=== PATIENT | female | born 1935 | race Caucasian/White ===

== ENCOUNTER 2017-10-23 13:15 | Emergency (ER) | payer MEDICARE, OTHER, SELFPAY ==
[2017-10-23 13:18] VITALS: BP 158/67; PULSE 63; RESP 16; TEMP 36.2; O2SAT 95; BMI 25.1
[2017-10-23 14:24] VITALS: BP 170/73; PULSE 53
--- NOTE | 2017-10-23 15:52 | PC.NURSE ---
Attempts x2 unsuccessful for IV start
[2017-10-23 16:00] VITALS: BP 149/63; PULSE 62; RESP 15; O2SAT 99
--- NOTE | 2017-10-23 16:07 | PC.NURSE ---
First 2 attempts by primary RN
[2017-10-23 16:10] LABS: Add Manual Diff / Slide Review NO; Basophils Percent Auto 0.2 % (0-2); Eosinophils Percent Auto 1.2 % (2-4); Hematocrit 39.7 % (36-46); Hemoglobin 13.6 g/dL (12.0-16.0); Lymphocytes Percent Auto 16.3 % (25-40); Mean Corpuscular HGB Conc 34.3 % (30-36); Mean Corpuscular Hemoglobin 32.1 PG (26-34); Mean Corpuscular Volume 93.7 fL (80-100); Monocytes Percent Auto 6.7 % (3-14); Neutrophils Absolute Auto 5500 /uL (3000-5900); Neutrophils Percent Auto 75.6 % (50-75); Platelet Count 280 X10^3/uL (150-400); Red Blood Cell Count 4.24 X10^6/uL (4.0-5.2); Red Cell Distribution Width 13.6 % (11.6-14.8); White Blood Cell Count 7.3 X10^3/uL (4.5-11.0)
[2017-10-23] MEDS: SODIUM CHLORIDE 0.9% 1,000 ML 1000 ML IV (16:10)
[2017-10-23 16:21] LABS: BUN Creatinine Ratio 22.5 (6-22); Blood Urea Nitrogen 18 mg/dL (7-17); Carbon Dioxide 27 mmol/L (22-32); Chloride 106 mmol/L (98-107); Estimated Glomerular Filt Rate > 60.0 mL/min (>60); Glucose 95 mg/dL (80-110); HEMOLYSIS 21 (0-50); Potassium 4.3 mmol/L (3.4-5.1); Sodium 142 mmol/L (137-145)
[2017-10-23 16:36] LABS: Troponin I < 0.012 ng/mL (0.01-0.034)
[2017-10-23 17:06] VITALS: BP 140/64; PULSE 58; RESP 14; O2SAT 99
--- NOTE | 2017-10-23 17:36 | ED_ITS ---
HPI - Dizziness General Chief Complaint: Dizziness Stated Complaint: Pt states Dizziness, elevated BP 160/90 Time Seen by Provider: 10/23/17 15:16 Source: patient Mode of arrival: ambulatory Limitations: no limitations History of Present Illness HPI Narrative: Patient presents to the emergency department today with a chief complaint of an episode of dizziness that started this morning. She states that she had a sudden onset of dizziness when she was getting out of her car. She denies any injury or recent injury. She denies any neck pain nor other neurologic symptoms such as numbness, weakness or tingling. She denies any recent illness with nausea, vomiting or diarrhea. She denies runny nose, sore throat or cough. She does state that she has been celebrating a lot lately due to her 82th birthday. Just last night she was at her grandson's college graduation green party and had a few alcoholic beverages, but nothing out of the ordinary. Today she had very strong coffee prepared by her daughter which is abnormal for her. She denies medication change and is otherwise well MD complaint: dizziness Onset (ago): hour(s) Timing: sudden onset Description: lightheadedness History of similar episodes: No History of trauma: No Severity: mild Relieving factors: remaining still Exacerbating factors: movement Associated symptoms: denies other symptoms Related Data Allergies Allergy/AdvReac Type Severity Reaction Status Date / Time No Known Drug Allergies Allergy Verified 10/23/17 14:56 Review of Systems Review of Systems All systems reviewed & are unremarkable except as noted in HPI and below Constitutional Denies chills, Denies fever(s), Denies lethargy and Denies weakness Eyes Denies change in vision, Denies eye discharge, Denies irritation and Denies loss of vision ENT Ears, Nose, Mouth, and Throat: Denies change in voice, Reports dizziness, Denies neck pain and Denies sore throat Cardiovascular Denies chest pain, Denies irregular heart rhythm, Denies lightheadedness, Denies palpitations, Denies dyspnea, Denies dyspnea on exertion and Denies orthopnea Respiratory Denies cough, Denies dyspnea, Denies dyspnea on exertion and Denies wheezing Gastrointestinal Gastrointestinal: Denies abdominal pain, Denies change in bowel habits, Denies diarrhea, Denies nausea and Denies vomiting Genitourinary Denies hematuria, Denies flank pain, Denies urinary incontinence and Denies urinary urgency Musculoskeletal Denies neck pain Integumentary/Breasts Denies pruritus, Denies erythema, Denies rash and Denies wounds Neurologic Denies confusion, Reports dizziness, Denies loss of vision and Denies weakness Psychiatric Denies anxiety, Denies confusion, Denies depression, Denies homicidal ideation and Denies suicidal ideation Endocrine Denies palpitations Hematologic/Lymphatic Denies easy bruising Allergic/Immunologic Denies wheezing PFSH Social History Smoking Status: Never smoker Exam Initial Vital Signs Initial Vital Signs: Vital Signs Temperature 97.1 F L 10/23/17 13:18 Pulse Rate 63 10/23/17 13:18 Respiratory Rate 16 10/23/17 13:18 Blood Pressure 158/67 H 10/23/17 13:18 Pulse Oximetry 95 10/23/17 13:18 Const General: cooperative and well developed Nutritional Appearance: well nourished Orientation: alert, awake, oriented x3 and not confused HENMT Head: normocephalic and atraumatic Ears: external ears normal and TM's normal bilaterally Nose: external nose normal and No nasal discharge Face and sinus: sinuses nontender, face symmetric, no sinus tenderness and No dry mucous membranes Mouth: oral mucosae normal and moist mucous membranes Teeth and gingiva: dentition normal Throat: tonsils normal and uvula midline Eyes General: appearance normal, both eyes and all related structures Eyelids: eyelids normal Conjunctivae: conjunctivae normal Sclera: sclerae normal Pupils: PERRL EOM: EOM intact bilaterally Neck Neck: normal visual inspection, trachea midline, No lymphadenopathy, No midline deformity and No JVD Lymphatic: No lymphedema Chest Chest: normal inspection of the chest Resp Effort & Inspection: normal respiratory effort, able to speak in complete sentences, no respiratory distress and no use of accessory muscles Auscultation: clear to auscultation bilaterally, no rales, no rhonchi and no wheezes Cardio Rate: regular rate Rhythm: regular rhythm Heart Sounds: no click, no gallops, no murmurs and no rubs Pulses: normal peripheral pulses GI Inspection: non-distended Palpation: soft, no hepatosplenomegaly, No guarding, No pulsatile mass and No tender Auscultation: normal bowel sounds Back/Spine/Pelvis Back: No CVA tenderness Cervical Spine: cervical ROM normal and No pain with cervical ROM Thoracic/Lumbar Spine: thoracic and lumbar spine normal to inspection Skin General: no rashes or lesions noted, No jaundice and No petechiae Neuro General: alert, oriented x3, gait normal and no focal motor deficits Speech: speech normal Other: NIH Stroke Scale 1a. LOC: Patient is alert and keenly responsive (0) 1b. LOC Questions: Patient answers both LOC questions accurately (0) 1c. LOC Commands: Patient performs both tasks correctly (0) 2. Best Gaze: Normal (0) 3. Visual: No visual loss (0) 4. Facial palsy: Normal symmetrical movements (0) 5. Motor arm: No drift (0) 6. Motor leg: No drift (0) 7. Limb ataxia: Absent (0) 8. Sensory: Normal (0) 9. Best language: No aphasia; normal (0) 10. Dysarthria: Normal (0) 11. Extinction and inattention: No abnormality (0) NIHSS: 0 Extrem General: full ROM, no clubbing, cyanosis or edema, no pedal edema and no calf tenderness Psych Appearance: well kempt Mental Status: mental status grossly normal Attitude: cooperative Thought Content: normal and suicidality Judgment: judgment good Course Orders Ordered: ED Orders 10/23/17 15:58 Basic Metabolic Panel Stat Complete Blood Count AUTO DIFF Stat Troponin I Stat Discontinued Medications Sodium Chloride (Normal Saline 0.9%) 1,000 mls @ 1,000 mls/hr IV BOLUS ONE Stop: 10/23/17 16:35 Last Admin: 10/23/17 16:10 Dose: 1,000 mls/hr Vital Signs - 8 hr 10/23/17 13:18 10/23/17 14:24 10/23/17 16:00 Temperature 97.1 F L Pulse Rate 63 53 L 62 Respiratory Rate 16 15 Blood Pressure 158/67 H Blood Pressure [Left Arm] 170/73 H 149/63 H Pulse Oximetry 95 99 10/23/17 17:06 Temperature Pulse Rate 58 L Respiratory Rate 14 Blood Pressure 140/64 H Blood Pressure [Left Arm] Pulse Oximetry 99 MDM - Dizziness Differential Diagnosis Likely benign paroxysmal positional vertigo, orthostatic hypotension, vertebral basilar insufficiency, cerebrovascular accident, acute vestibular neuronitis and transient cerebral ischemia Medical Records Attestation: I reviewed the patient's medical records. Lab Data Attestation: I reviewed the patient's lab results. Result diagrams: 10/23/17 15:58 10/23/17 15:58 Lab Results 10/23/17 10/23/17 Range/Units 15:58 15:58 WBC 7.3 (4.5-11.0) X10^3/uL RBC 4.24 (4.0-5.2) X10^6/uL Hgb 13.6 (12.0-16.0) g/dL Hct 39.7 (36-46) % MCV 93.7 (80-100) fL MCH 32.1 (26-34) PG MCHC 34.3 (30-36) % RDW 13.6 (11.6-14.8) % Plt Count 280 (150-400) X10^3/uL Neut % (Auto) 75.6 H (50-75) % Lymph % (Auto) 16.3 L (25-40) % [place] % (Auto) 6.7 (3-14) % Eos % (Auto) 1.2 L (2-4) % Baso % (Auto) 0.2 (0-2) % Neut # (Auto) 5500 (2247-0026) /uL Sodium 142 (137-145) mmol/L Potassium 4.3 (3.4-5.1) mmol/L Chloride 106 (98-107) mmol/L Carbon Dioxide 27 (22-32) mmol/L BUN 18 H (7-17) mg/dL Creatinine 0.80 (0.52-1.04) mg/dL Estimated GFR > 60.0 (>60) mL/min BUN/Creatinine Ratio 22.5 H (6-22) Glucose 95 (80-110) mg/dL Calcium 9.0 (8.4-10.2) mg/dL Troponin I < 0.012 (0.01-0.034) ng/mL ECG Data Attestation: I personally reviewed and interpreted this ECG as follows: Prior ECG tracings: not available for review Interpretation: EKG is normal sinus rhythm and free of any signs of ischemia or ectopy. Discharge Plan Departure Patient Disposition: Home, Self-Care Clinical Impression: Dizziness Discharge Date/Time: 10/23/17 17:07 Interventions: ED Discharge Assessment Last Done: 10/23/17 17:06 Instructions: DI for Dizziness-Nonvertigo Activity Restrictions/Additional Instructions: *You have been diagnosed with [ dizziness ] *What to do: * Your blood pressure is slightly elevated and this can cause long-term health problems if not addressed appropriately. Please follow-up with your doctor to discuss your options *Follow up with your primary care provider in 2-3 days, call tomorrow for an appointment *Return to ER if you should have any new, worsening or concerning symptoms
== END 2017-10-23 17:07 | disposition home or self-care (01) ==
PROVIDERS: Emergency Provider Emergency Medicine
DX: R42 Dizziness and giddiness (principal)
CPT/HCPCS: 36591; 80048; 81003; 84484; 85025; 93005; 93041; 99283; 99284